=== PATIENT | male | born 1985 | race American Indian/Alaskan Native ===

== ENCOUNTER 2019-08-25 05:57 | Emergency (ER) | payer SELFPAY ==
--- NOTE | 2019-08-25 09:48 | Emergency Department Report ---
Chief Complaint: Sore Throat Stated Complaint: THROAT PAIN Time Seen by Provider: 08/25/19 09:30 - HPI History of Present Illness: This is a 34-year-old young healthy looking male who presents the ED complaining of pain and white spots on his tongue for the past 2 to 3 days. Patient states he is also having associated throat pain that is worsening with swallowing. Patient states that white spots on the tongue started about 5 days ago and is gotten worse in the past 2 days. Patient denies fever/chills/nausea vomiting/abdominal pain/shortness of breath/chest pain/any history of HIV diabetes hypertension or any medical conditions. - ROS Review of Systems: As noted in HPI - Exam Vital Signs: Vital Signs 08/25/19 06:17 Temperature 98.4 F Pulse Rate 77 Respiratory 18 Rate Blood Pressure 104/69 O2 Sat by Pulse 99 Oximetry Physical Exam: GENERAL: Alert and oriented x3, no apparent distress, Normal Gait, atraumatic. MOUTH:Mouth is well hydrated and without lesions. Tonsils are mildly erythematous but not swollen, Uvula midline, Tongue with multiple white flaky lesions all over the tongue ,not elevated. Mucous membranes are moist. Posterior pharynx clear, no exudate or lesions. Patent airways. SKIN: Warm and dry, No lesions, No ulceration or induration present. MSE screening note: Focused history and physical exam performed. Due to findings the following was ordered: ED Medical Decision Making - Medical Decision Making 34-year-old male presents with Nadia of the mouth. Discussed with patient's is a infection of the mouth. Discussed with patient follow-up with primary care physician. Discussed treatment with patient. Discussed with patient to report health department for screening, Vital signs are normal patient is in no acute distress he understands instructions. ED Disposition for MSE Clinical Impression: Oral candidiasis Disposition: DC-01 TO HOME OR SELFCARE Is pt being admited?: No Does the pt Need Aspirin: No Condition: Stable Instructions: Oral Candidiasis (ED) Additional Instructions: Make sure to follow up with the primary care physician as discussed. Take all your medications as you've been prescribed. If you have any worsening symptoms or develop new symptoms please return to ED immediately. Prescriptions: Nystatin [Nystatin SUSP] 10 ml PO TID #210 ml Chlorhexidine Mouthwash [Peridex] 15 ml MM BID #1 bottle Referrals: PRIMARY CARE, [Primary Care Provider] - 3-[address] [facility] [Outside] - 3-5 Days [facility] [Outside] - 3-5 Days Forms: Work/School Release Form(ED) Time of Disposition: 09:50
[2019-08-25 10:19] VITALS: BP 104/73
== END 2019-08-25 10:18 | disposition home or self-care (01) ==
LOC: ED 05:57
DX: B37.0 Candidal stomatitis (principal)
CPT/HCPCS: 99282

== ENCOUNTER 2019-10-24 02:39 | Emergency (ER) | payer SELFPAY ==
[2019-10-24 02:51] VITALS: BP 130/88
[2019-10-24] MEDS ORDERED: oxyCODONE /ACETAMINOPHEN 5-325MG TAB PO ONE ×2 (03:18→03:19)
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
--- NOTE | 2019-10-24 04:47 | XRay Report ---
Left shoulder 3 views INDICATION: Left shoulder pain following injury IMPRESSION: No fracture or subluxation identified. Signer Name: Chester Bolton MD Signed: 10/24/2019 4:43 AM Workstation Name: [id number]
--- NOTE | 2019-10-24 04:47 | XRay Report ---
Left knee 3 views INDICATION: Knee pain following injury IMPRESSION: No fracture or subluxation identified. Signer Name: Chester Bolton MD Signed: 10/24/2019 4:42 AM Workstation Name: [id number]
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
== END 2019-10-24 05:30 | disposition home or self-care (01) ==
LOC: ED 02:39
DX: S93.492A Sprain of other ligament of left ankle, initial encounter (principal); S80.212A Abrasion, left knee, initial encounter; M25.532 Pain in left wrist; X58.XXXA Exposure to other specified factors, initial encounter; Y93.89 Activity, other specified; Y92.89 Other specified places as the place of occurrence of the external cause; Y99.8 Other external cause status

== ENCOUNTER 2019-12-13 04:12 | Emergency (ER) | payer SELFPAY ==
[2019-12-13 06:20] LABS: Hematocrit 35.8 % (35.5-45.6); Hemoglobin 12.2 gm/dl (11.8-15.2); Mean Corpuscular HGB Conc 34 % (32-34); Mean Corpuscular Volume 90 fl (84-94); Platelet Count 371 K/mm3 (140-440); Red Blood Count 3.97 M/mm3 (3.65-5.03)
[2019-12-13 06:36] LABS: Alanine Aminotransferase 24 units/L (7-56); Albumin 3.7 g/dL (3.9-5); BUN/Creatinine Ratio 12; Blood Urea Nitrogen 11 mg/dL (9-20); Calcium 9.1 mg/dL (8.4-10.2); Hemolysis Index 19
[2019-12-13 06:55] LABS: Basophils % (Manual) 0 % (0.0-1.8); Total Cells Counted 100
[2019-12-13 06:56] LABS: Platelet Estimate Consistent w Auto
--- NOTE | 2019-12-13 07:17 | Emergency Department Report ---
ED General Adult HPI - General Chief complaint: Urogenital-Male Stated complaint: DISCHARGE Time Seen by Provider: 12/13/19 07:07 Source: patient Mode of arrival: Ambulatory Limitations: No Limitations - History of Present Illness Initial comments: This is a 34-year-old man who neglected to mention in triage that he was HIV positive. He states he goes to an IDC in [facility]. He states his last visit was 3 weeks ago. He also claims that his CD4 count and viral load were "all good". He states he is compliant with his HIV medicine but did not provide this information to the nurse. Patient states that he noted a brownish discharge over the past 2 days. He denies fever or chills. He has been having some problems with his bowel movements but does not report rectal discharge. He has had no recent vomiting or abdominal pain. -: Gradual, days(s) Improves with: none Worsens with: none Associated Symptoms: denies other symptoms - Related Data Previous Rx's Medication Instructions Recorded Last Taken Type Magnesium Citrate [Citrate of 300 ml PO QDAY #2 bottle 02/08/14 Unknown Rx Magnesia] Chlorhexidine Mouthwash [Peridex] 15 ml MM BID #1 bottle 08/25/19 Unknown Rx Nystatin [Nystatin SUSP] 10 ml PO TID #210 ml 08/25/19 Unknown Rx Hyoscyamine Subl [Levsin Sl 0.125 0.125 mg SL Q4HR PRN #30 tablet 09/24/19 Unknown Rx TAB] Ondansetron [Zofran ODT TAB] 8 mg PO ONCE #14 tab.rapdis 09/24/19 Unknown Rx Chlorhexidine Gluconate [Hibiclens] 10 ml TP BID #240 liquid 10/24/19 Unknown Rx Ketorolac [Toradol] 10 mg PO Q6H PRN #15 tablet 10/24/19 Unknown Rx Mupirocin [Bactroban 2%] 15 applic TP TID #15 gm 10/24/19 Unknown Rx traMADoL [Ultram] 50 mg PO Q6HR PRN #20 tablet 10/24/19 Unknown Rx Docusate Sodium [Colace] 100 mg PO BID #20 capsule 12/13/19 Unknown Rx Allergies Allergy/AdvReac Type Severity Reaction Status Date / Time No Known Allergies Allergy Verified 02/08/14 16:16 ED Review of Systems ROS: Stated complaint: DISCHARGE Other details as noted in HPI Constitutional: denies: chills, fever Eyes: denies: eye pain, eye discharge, vision change ENT: denies: ear pain, throat pain Respiratory: denies: cough, shortness of breath, wheezing Cardiovascular: denies: chest pain, palpitations Endocrine: no symptoms reported Gastrointestinal: as per HPI, constipation. denies: abdominal pain, nausea, diarrhea Genitourinary: as per HPI, discharge Musculoskeletal: denies: back pain, joint swelling, arthralgia Skin: denies: rash, lesions Neurological: denies: headache, weakness, paresthesias Psychiatric: denies: anxiety, depression Hematological/Lymphatic: denies: easy bleeding, easy bruising ED Past Medical Hx - Past Medical History Previous Medical History?: Yes Hx HIV: Yes - Surgical History Past Surgical History?: No - Social History Smoking Status: Current Every Day Smoker Substance Use Type: Alcohol - Medications Home Medications: Home Medications Medication Instructions Recorded Confirmed Last Taken Type Magnesium Citrate [Citrate of 300 ml PO QDAY #2 bottle 02/08/14 Unknown Rx Magnesia] Chlorhexidine Mouthwash [Peridex] 15 ml MM BID #1 bottle 08/25/19 Unknown Rx Nystatin [Nystatin SUSP] 10 ml PO TID #210 ml 08/25/19 Unknown Rx Hyoscyamine Subl [Levsin Sl 0.125 0.125 mg SL Q4HR PRN #30 tablet 09/24/19 Unknown Rx TAB] Ondansetron [Zofran ODT TAB] 8 mg PO ONCE #14 tab.rapdis 09/24/19 Unknown Rx Chlorhexidine Gluconate [Hibiclens] 10 ml TP BID #240 liquid 10/24/19 Unknown Rx Ketorolac [Toradol] 10 mg PO Q6H PRN #15 tablet 10/24/19 Unknown Rx Mupirocin [Bactroban 2%] 15 applic TP TID #15 gm 10/24/19 Unknown Rx traMADoL [Ultram] 50 mg PO Q6HR PRN #20 tablet 10/24/19 Unknown Rx Docusate Sodium [Colace] 100 mg PO BID #20 capsule 12/13/19 Unknown Rx ED Physical Exam - General Limitations: No Limitations General appearance: alert, in no apparent distress, cachectic - Head Head exam: Present: atraumatic, normocephalic - Eye Eye exam: Present: normal appearance. Absent: scleral icterus (Somewhat) - ENT ENT exam: Present: mucous membranes moist, other (Geographic tongue but I do not see rosas thrush) - Neck Neck exam: Present: normal inspection. Absent: tenderness, meningismus - Respiratory Respiratory exam: Present: normal lung sounds bilaterally. Absent: respiratory distress - Cardiovascular Cardiovascular Exam: Present: regular rate, normal rhythm. Absent: systolic murmur, diastolic murmur, rubs, gallop - GI/Abdominal GI/Abdominal exam: Present: soft, normal bowel sounds. Absent: distended, tenderness, guarding, rebound - Rectal Rectal exam: Present: deferred - Extremities Exam Extremities exam: Present: normal inspection - Back Exam Back exam: Present: normal inspection - Neurological Exam Neurological exam: Present: alert, oriented X3 - Psychiatric Psychiatric exam: Present: normal affect, normal mood - Skin Skin exam: Present: warm, dry, intact, normal color. Absent: rash ED Course Vital Signs 12/13/19 04:30 Temperature 98.8 F Pulse Rate 96 H Respiratory 16 Rate Blood Pressure 128/87 O2 Sat by Pulse 97 Oximetry - Reevaluation(s) Reevaluation #1: Patient is referred back to his IDC for further care and follow-up. He is treated empirically with ceftriaxone and a azithromycin now. 12/13/19 07:35 12/13/19 07:36 ED Medical Decision Making - Lab Data Result diagrams: 12/13/19 06:02 12/13/19 06:02 Laboratory Results - last 24 hr 12/13/19 12/13/19 06:02 06:02 WBC 7.3 RBC 3.97 Hgb 12.2 Hct 35.8 MCV 90 MCH 31 MCHC 34 RDW 15.0 Plt Count 371 Add Manual Diff Complete Total Counted 100 Seg Neuts % (Manual) 49.0 Band Neutrophils % 0 Lymphocytes % (Manual) 39.0 H Reactive Lymphs % (Man) 0 Monocytes % (Manual) 10.0 H Eosinophils % (Manual) 2.0 Basophils % (Manual) 0 Metamyelocytes % 0 Myelocytes % 0 Promyelocytes % 0 Blast Cells % 0 Nucleated RBC % Not Reportable Seg Neutrophils # Man 3.6 Band Neutrophils # 0.0 Lymphocytes # (Manual) 2.8 Abs React Lymphs (Man) 0.0 Monocytes # (Manual) 0.7 Eosinophils # (Manual) 0.1 Basophils # (Manual) 0.0 Metamyelocytes # 0.0 Myelocytes # 0.0 Promyelocytes # 0.0 Blast Cells # 0.0 WBC Morphology Not Reportable Hypersegmented Neuts Not Reportable Hyposegmented Neuts Not Reportable Hypogranular Neuts Not Reportable Smudge Cells Not Reportable Toxic Granulation Not Reportable Toxic Vacuolation Not Reportable Dohle Bodies Not Reportable Pelger-Huet Anomaly Not Reportable Rochelle Rods Not Reportable Platelet Estimate Consistent w auto Clumped Platelets Not Reportable Plt Clumps, EDTA Not Reportable Large Platelets Not Reportable Giant Platelets Not Reportable Platelet Satelliting Not Reportable Plt Morphology Comment Not Reportable RBC Morphology Not Reportable Dimorphic RBCs Not Reportable Polychromasia Not Reportable Hypochromasia Not Reportable Poikilocytosis Not Reportable Anisocytosis Not Reportable Microcytosis Not Reportable Macrocytosis Not Reportable Spherocytes Not Reportable Pappenheimer Bodies Not Reportable Sickle Cells Not Reportable Target Cells Not Reportable Tear Drop Cells Not Reportable Ovalocytes Not Reportable Helmet Cells Not Reportable Ferro-[place] Bodies Not Reportable [place] Rings Not Reportable [place] Cells Not Reportable Bite Cells Not Reportable Crenated Cell Not Reportable Elliptocytes Not Reportable Acanthocytes (Spur) Not Reportable Rouleaux Not Reportable Hemoglobin C Crystals Not Reportable Schistocytes Not Reportable Malaria parasites Not Reportable Elder Bodies Not Reportable Hem Pathologist Commnt No Sodium 139 Potassium 3.5 L Chloride 99.0 Carbon Dioxide 31 H Anion Gap 13 BUN 11 Creatinine 0.9 Estimated GFR > 60 BUN/Creatinine Ratio 12 Glucose 116 H Calcium 9.1 Total Bilirubin 0.20 AST 23 ALT 24 Alkaline Phosphatase 96 Total Protein 7.3 Albumin 3.7 L Albumin/Globulin Ratio 1.0 Lipase 79 H Critical care attestation.: If time is entered above; I have spent that time in minutes in the direct care of this critically ill patient, excluding procedure time. ED Disposition Clinical Impression: Urethritis, HIV positive Disposition: DC-01 TO HOME OR SELFCARE Is pt being admited?: No Does the pt Need Aspirin: No Condition: Stable Instructions: Nonspecific Urethritis in Men (ED), Human Immunodeficiency Virus Transmission (ED), Human Immunodeficiency Virus Infection (ED) Additional Instructions: Follow-up with your infectious disease physicians as soon as you can. Rx for stool softener. Prescriptions: Docusate Sodium [Colace] 100 mg PO BID #20 capsule Referrals: PRIMARY CARE,MD [Primary Care Provider] - 3-5 Days Usual, infectious disease clinic [Other] - 3-5 Days Forms: STI Treatment and Prevention
[2019-12-13] MEDS ORDERED: LIDOCAINE-MPF (1%) 10 MG/1 ML VIAL 5 ML INFILTRATI ONE (07:38)
[2019-12-13] MEDS ORDERED: AZITHROMYCIN 1 GM ORAL PWDR PACKET PO ONE (07:38)
[2019-12-13 08:40] VITALS: BP 126/71
== END 2019-12-13 08:35 | disposition home or self-care (01) ==
LOC: ED 04:12
DX: N34.2 Other urethritis (principal); F17.200 Nicotine dependence, unspecified, uncomplicated; Z79.899 Other long term (current) drug therapy
CPT/HCPCS: 36415; 80053; 83690; 85007; 85025; 93005; 96372; 99283; J0696